=== PATIENT | male | born 1955 | race Caucasian/White ===

== ENCOUNTER 2021-11-28 07:33 | Emergency (ER) | payer MEDICARE ==
[2021-11-28] MEDS ORDERED: Albuterol/Ipratropium 3.0-0.5 MG/3 ML Neb Soln NEB ONE ×2 (07:36→07:47)
[2021-11-28] MEDS: methylPREDNISolone Sodium Succinate 125 MG/2 ML SDV IVPUSH ONE ×2 (07:46→09:04)
[2021-11-28] MEDS ORDERED: Sodium Chloride 0.9% 10 ML Syringe FLUSH PRN ×3 (07:46→09:24)
[2021-11-28] MEDS ORDERED: Adenosine 6 MG/2 ML SDV IVPUSH ONE ×2 (07:55→08:22)
[2021-11-28] MEDS ORDERED: Adenosine 6 MG/2 ML SDV ONE (08:23)
[2021-11-28] MEDS ORDERED: Diltiazem 25 MG/5 ML SDV IVPUSH ONE (08:23)
[2021-11-28] MEDS ORDERED: Diltiazem 25 MG/5 ML SDV ONE (08:25)
[2021-11-28] MEDS ORDERED: Diltiazem 125 MG/25 ML SDV ONE (08:27)
[2021-11-28] MEDS ORDERED: Etomidate 2 MG/ML 10 ML SDV ONE (08:35)
[2021-11-28 08:46] LABS: ANION GAP 12.1 meq/L (7-15); CHLORIDE,CL 103 mmol/L (98-107); SODIUM,NA 138 mmol/L (136-145)
[2021-11-28 08:47] LABS: ESTIMATED GFR 32 mL/min (>=60)
[2021-11-28] MEDS ORDERED: Ondansetron 4 MG/2 ML SDV ONE (08:49)
[2021-11-28] MEDS ORDERED: Morphine 2 MG/ML SYRINGE ONE ×2 (08:50→09:06)
[2021-11-28] MEDS ORDERED: Ondansetron 4 MG/2 ML SDV IVPUSH ONE (09:00)
[2021-11-28] MEDS ORDERED: Diltiazem 125 MG in Sodium Chloride 0.9% 100 ML IV SCH (09:00)
[2021-11-28] MEDS ORDERED: Morphine 2 MG/ML SYRINGE IV ONE (09:00)
[2021-11-28] MEDS ORDERED: Iopamidol 755 Mg/ML 100 ML Bottle IVPUSH STA (09:02)
[2021-11-28] MEDS: Sodium Chloride 0.9% 1,000 ML IV SCH ×2 (09:02→09:03)
[2021-11-28 09:32] LABS: CORONAVIRUS COVID-19 NAA NEGATIVE (NEGATIVE); RESPIRATORY SYNCYTIAL VIR NAA NEGATIVE (NEGATIVE)
[2021-11-28 10:05] VITALS: BP 156/114; PULSE 182
== END 2021-11-28 10:30 ==
LOC: LL.ED 07:33
DX: I31.3 Pericardial effusion (noninflammatory) (principal); I48.92 Unspecified atrial flutter; E78.00 Pure hypercholesterolemia, unspecified; I10 Essential (primary) hypertension; J44.9 Chronic obstructive pulmonary disease, unspecified; F17.210 Nicotine dependence, cigarettes, uncomplicated; Z88.8 Allergy status to other drugs, medicaments and biological substances; Z79.899 Other long term (current) drug therapy; Z20.822 Contact with and (suspected) exposure to COVID-19
CPT/HCPCS: 0241U; 36415; 71275; 80053; 83605; 83735; 83880; 84484; 85025; 85379; 87040; 92960; 93005; 96361; 96374; 96375; 99291-25; 99292; J0153; J2270; J2405; J2930; J3490; J7030; J7620-GY; Q9967